=== PATIENT | male | born 1980 | race American Indian/Alaskan Native ===

== ENCOUNTER 2021-10-26 15:30 | Inpatient (IN) | payer SELFPAY ==
[2021-10-26] MEDS ORDERED: NITROGLYCERIN 2% OINT 1 GM TP ONE (16:07)
[2021-10-26] MEDS ORDERED: MORPHINE 4 MG/1 ML INJ ONE (16:08)
[2021-10-26] MEDS ORDERED: HEPARIN 10,000 UNITS/10 ML VIAL IV PRN (16:13)
[2021-10-26 16:28] LABS: Basophils % (Auto) 0.2 % (0.0-1.8); Eosinophils % (Auto) 0.2 % (0.0-4.3); Hematocrit 43.7 % (35.5-45.6); Hemoglobin 14.6 gm/dl (11.8-15.2); INR 0.91 (0.87-1.13); Lymphocytes # (Auto) 2.1 K/mm3 (1.2-5.4); Lymphocytes % (Auto) 22.9 % (13.4-35.0); Mean Corpuscular HGB Conc 34 % (32-34); Mean Corpuscular Volume 97 fl (84-94); Monocytes # (Auto) 0.6 K/mm3 (0.0-0.8); Monocytes % (Auto) 6.1 % (0.0-7.3); Platelet Count 128 K/mm3 (140-440); Red Cell Distribution Width 14.1 % (13.2-15.2)
[2021-10-26 16:54] LABS: Alanine Aminotransferase 14 units/L (7-56); BUN/Creatinine Ratio 9; Blood Urea Nitrogen 11 mg/dL (9-20); C-Reactive Protein 0.5 mg/dL (0.00-1.30); Calcium 10.1 mg/dL (8.4-10.2); Hemolysis Index 16
--- NOTE | 2021-10-26 16:57 | Consultation ---
History of Present Illness Consult date: 10/26/21 Requesting physician: FRANCESCA INIGUEZ Consult reason: chest pain, other (ST depression EKG) History of present illness: Patient is a 40-year-old male who reports a past medical history of hypertension came to the ED today with complaint of chest pain which began this morning. Patient reports that while reading this afternoon he suddenly developed crushing chest pain which was centrally located in his chest. Patient endorses nausea vomiting and diaphoresis associated with the chest pain. Patient states he just does not feel well. Of note patient reports that he has not taken his blood pressure medications in about 3 weeks. At the time of exam patient is actively vomiting and appears in pain. Patient's EKG had ST depression. Patient is previously unknown to our practice. Cardiology is consulted for chest pain and abnormal EKG Past History Past Medical History: hypertension Past Surgical History: No surgical history Social history: no significant social history Family history: no significant family history Medications and Allergies Allergies Allergy/AdvReac Type Severity Reaction Status Date / Time No Known Allergies Allergy Verified 10/26/21 16:07 Active Meds: Active Medications Heparin Sodium (Porcine) (Heparin 10,000 Units/10 Ml Vial) 4,400 unit 40 unit/kg (4400 unit) IV Q6H PRN PRN Reason: Anti-Xa Assay less than 0.1 un Heparin Sodium (Porcine) (Heparin 10,000 Units/10 Ml Vial) 4,000 unit IV BOLUS ONE Stop: 10/26/21 17:01 Sodium Chloride (Nacl 0.9% 1000 Ml) 1,000 mls @ 999 mls/hr IV BOLUS ONE Stop: 10/26/21 18:00 Nitroglycerin/Dextrose (Tridil Drip 50mg/250ml) 50 mg in 250 mls @ 3 mls/hr IV TITR ELOY; Protocol Sodium Chloride (Nacl 0.9% 500 Ml) 500 mls @ 50 mls/hr IV DIRECT ELOY Stop: 10/27/21 02:59 Review of Systems Constitutional: malaise, no weight loss, no weight gain Ears, nose, mouth and throat: no sinus pressure, no sinus pain Cardiovascular: chest pain, shortness of breath Respiratory: shortness of breath Gastrointestinal: nausea, vomiting Musculoskeletal: no neck stiffness, no neck pain, no shooting arm pain Integumentary: no rash, no pruritis, no redness Neurological: no transient paralysis, no paralysis Psychiatric: no anxiety, no memory loss Endocrine: no cold intolerance, no heat intolerance Hematologic/Lymphatic: no easy bruising, no easy bleeding Physical Examination Vital Signs Pulse Resp BP Pulse Ox 85 24 162/102 100 10/26/21 16:14 10/26/21 16:14 10/26/21 16:14 10/26/21 16:14 General appearance: mild distress HEENT: Positive: Normocephaly Neck: Positive: trachea midline Cardiac: Positive: Regular Rhythm, Tachycardia Lungs: Positive: Normal Breath Sounds Neuro: Positive: Grossly Intact Abdomen: Positive: Soft Skin: Negative: Rash, Suspicious Lesions, Ulceration Extremities: Present: upper extr. pulses. Absent: edema Results 10/26/21 16:03 Coagulation 10/26/21 Range/Units 16:03 PT 13.2 (12.2-14.9) Sec. INR 0.91 (0.87-1.13) CBC 10/26/21 Range/Units 16:03 WBC 9.1 (4.5-11.0) K/mm3 RBC 4.50 (3.65-5.03) M/mm3 Hgb 14.6 (11.8-15.2) gm/dl Hct 43.7 (35.5-45.6) % Plt Count 128 L (140-440) K/mm3 Lymph # (Auto) 2.1 (1.2-5.4) K/mm3 [place] # (Auto) 0.6 (0.0-0.8) K/mm3 Eos # (Auto) 0.0 (0.0-0.4) K/mm3 Baso # (Auto) 0.0 (0.0-0.1) K/mm3 - Imaging and Cardiology Echo: pending Cardiac cath: pending EKG interpretations - Telemetry EKG Rhythm: Sinus Rhythm - EKG Sinus rhythms and dysrhythmias: sinus rhythm Repolarization changes or abnormalities: ST or T wave suggestive of ischemia Assessment and Plan Patient is a 40-year-old male who reports a past medical history of hypertension came to the ED today with complaint of chest pain which began this morning ACS Chest pain Nausea/vomiting Hypertension Plan: EKG shows sinus rhythm with ST depression. Cardiac enzymes pending Initiate nitro drip Treat patient for ACS Patient for cardiac cath Echo pending Further recommendations following lab work and possible cardiac Patient seen in conjunction with Dr. Ayala who agrees this plan of care - Patient Problems (1) ACS (acute coronary syndrome) Status: Acute (2) HTN (hypertension) Status: Acute
[2021-10-26] MEDS ORDERED: HEPARIN/NS 5000 UNIT/500ML 1,000 ML IR ONE (16:58)
[2021-10-26] MEDS ORDERED: SODIUM CHLORIDE 0.9% 500 ML 500 ML IV SCH (17:00)
[2021-10-26] MEDS ORDERED: HEPARIN 10,000 UNITS/10 ML VIAL IV ONE (17:00)
[2021-10-26] MEDS ORDERED: SODIUM CHLORIDE 0.9% 1000 ML 1,000 ML IV ONE (17:00)
[2021-10-26] MEDS ORDERED: HEPARIN 1,000 UNIT/1 ML VIAL IV ONE (17:00)
--- NOTE | 2021-10-26 17:00 | Emergency Department Report ---
ED Chest Pain HPI - General Chief Complaint: Chest Pain Stated Complaint: CHEST PAIN PUI?: No Time Seen by Provider: 10/26/21 15:53 Source: patient, EMS Mode of arrival: Stretcher Limitations: No Limitations - History of Present Illness Initial Comments: PT C/O CP WITH N/V. 01/16. DIAPHORETIC. UNABLE TO SIT STILL. pain started 1 hour agowhile lying down , no fever, . Nausea and vomiting noted and sweating -: Sudden, hour(s) (1) Onset: during rest Pain Location: substernal Pain Radiation: back, neck, jaw/teeth Severity: severe Severity scale (0 -10): 10 Quality: aching, pressure Improves With: nothing Worsens With: nothing re: nausea, vomting, diaphoresis, dyspnea, sense of impending doom Treatments Prior to Arrival: aspirin - Related Data Allergies Allergy/AdvReac Type Severity Reaction Status Date / Time No Known Allergies Allergy Verified 10/26/21 16:07 Heart Score - HEART Score History: Highly suspicious EKG: Significant ST-depression Age: < 45 Risk factors: No known risk factors Troponin: < normal limit HEART Score: 4 - EKG Read Time Time EKG Completed: 15:31 EKG Read Time: 15:31 - Critical Actions Critical Actions: 4-6 pts:12-16.6% risk of adverse cardiac event. Should be admitted ED Review of Systems ROS: Stated complaint: CHEST PAIN Other details as noted in HPI ED Past Medical Hx - Past Medical History Previous Medical History?: No Hx Hypertension: No ED Physical Exam - General Limitations: No Limitations General appearance: anxious, in distress, other (diaphoretic ) - Head Head exam: Present: atraumatic, normocephalic - Eye Eye exam: Present: normal appearance - ENT ENT exam: Present: mucous membranes moist - Neck Neck exam: Present: normal inspection - Respiratory Respiratory exam: Present: normal lung sounds bilaterally. Absent: respiratory distress - Cardiovascular Cardiovascular Exam: Present: regular rate, normal rhythm. Absent: systolic murmur, diastolic murmur, rubs, gallop - GI/Abdominal GI/Abdominal exam: Present: soft, normal bowel sounds - Rectal Rectal exam: Present: deferred - Extremities Exam Extremities exam: Present: normal inspection - Back Exam Back exam: Present: normal inspection - Neurological Exam Neurological exam: Present: alert, oriented X3 - Psychiatric Psychiatric exam: Present: anxious - Skin Skin exam: Present: warm, intact, normal color, diaphoretic. Absent: rash ED Course Vital Signs 10/26/21 10/26/21 10/26/21 15:51 15:55 16:01 Pulse Rate 91 H 73 Respiratory 20 22 Rate Blood Pressure 205/87 211/78 Blood Pressure [Left] O2 Sat by Pulse 100 100 100 Oximetry 10/26/21 10/26/21 10/26/21 16:05 16:11 16:14 Pulse Rate 96 H 85 Respiratory 14 17 24 Rate Blood Pressure 185/93 185/93 Blood Pressure 162/102 [Left] O2 Sat by Pulse 100 100 100 Oximetry 10/26/21 10/26/21 10/26/21 16:15 16:21 16:25 Pulse Rate 71 70 Respiratory 14 13 Rate Blood Pressure 159/117 147/99 147/99 Blood Pressure [Left] O2 Sat by Pulse 99 98 99 Oximetry 10/26/21 10/26/21 10/26/21 16:31 16:35 16:41 Pulse Rate 74 94 H 91 H Respiratory 15 14 12 Rate Blood Pressure 147/99 205/173 205/173 Blood Pressure [Left] O2 Sat by Pulse 100 100 100 Oximetry 10/26/21 10/26/21 10/26/21 16:45 16:51 16:55 Pulse Rate 75 78 Respiratory 20 16 Rate Blood Pressure 205/173 162/77 162/77 Blood Pressure [Left] O2 Sat by Pulse 100 98 100 Oximetry ED Medical Decision Making - Lab Data Result diagrams: 10/26/21 16:03 10/26/21 16:03 - EKG Data -: EKG Interpreted by [place] EKG shows normal: sinus rhythm Rate: normal - EKG Data Interpretation: LVH - Radiology Data Radiology results: report reviewed, image reviewed - Medical Decision Making spoke with dr Garvin and roderick, not stemi but started hep drip and nitro , Dr barrera came to bed side will take him to 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 ED Disposition Clinical Impression: ACS (acute coronary syndrome) Disposition: ADMITTED INPATIENT Is pt being admited?: Yes Does the pt Need Aspirin: Yes Condition: Critical
--- NOTE | 2021-10-26 17:05 | XRay Report ---
CHEST 1 VIEW 10/26/2021 4:28 PM INDICATION / CLINICAL INFORMATION: Chest Pain. COMPARISON: None available. FINDINGS: SUPPORT DEVICES: None. HEART / MEDIASTINUM: No significant abnormality. LUNGS / PLEURA: No significant pulmonary or pleural abnormality. No pneumothorax. ADDITIONAL FINDINGS: No significant additional findings. IMPRESSION: No acute abnormality. Signer Name: Dougie Romero MD Signed: 10/26/2021 5:00 PM Workstation Name: [email or web address]
[2021-10-26] MEDS ORDERED: SODIUM CHLORIDE 0.9% 1000 ML 1,000 ML ONE (17:15)
[2021-10-26] MEDS: HEPARIN 10,000 UNITS/10 ML VIAL ONE ×2 (17:18→17:30)
[2021-10-26] MEDS: MIDAZOLAM 2 MG/2 ML INJ ONE ×2 (17:18→17:28)
[2021-10-26] MEDS: fentaNYL 100 MCG/2 ML INJ ONE ×2 (17:18→17:28)
[2021-10-26] MEDS: VERAPAMIL 5 MG/2 ML INJ ONE ×2 (17:19→17:30)
[2021-10-26] MEDS: LIDOCAINE (2%) 20 MG/1 ML VIAL 50 ML MDV INFILTRATI ONE ×2 (17:19→17:27)
[2021-10-26] MEDS: NITROGLYCERIN SYRINGE 3 ML ONE ×2 (17:19→17:30)
[2021-10-26] MEDS ORDERED: NITROGLYCERIN DRIP 50 MG/250 ML BOTTLE ONE (17:19)
[2021-10-26] MEDS: NITROGLYCERIN DRIP 50 MG/250 ML BOTTLE IV SCH ×2 (17:23→18:25)
[2021-10-26] MEDS ORDERED: hydrALAZINE 20 MG/1 ML INJ ONE (17:27)
[2021-10-26] MEDS ORDERED: MORPHINE 4 MG/1 ML INJ IV ONE ×2 (17:28→17:30)
[2021-10-26] MEDS ORDERED: LORazepam 2 MG/ML VIAL IV ONE (17:29)
[2021-10-26] MEDS ORDERED: MORPHINE 4 MG/1 ML INJ IV PRN (17:38)
[2021-10-26] MEDS ORDERED: ACETAMINOPHEN 325 MG TAB PO PRN (17:38)
[2021-10-26] MEDS ORDERED: oxyCODONE /ACETAMINOPHEN 5-325MG TAB PO PRN (17:38)
[2021-10-26] MEDS ORDERED: ALBUTEROL 2.5 MG/3 ML NEBU IH PRN (17:38)
[2021-10-26] MEDS ORDERED: HEPARIN 10,000 UNIT/1 ML VIAL IV ONE (17:40)
--- NOTE | 2021-10-26 17:47 | History and Physical Report ---
History of Present Illness Chief complaint: I have pain in my chest History of present illness: 40 YO Male with HTN, Obesity presents to ED for evaluation. Patient reports "I have pain in my chest". Patient states that he experienced a sudden onset of pain in his chest this afternoon. Patient states that the pain occurred suddenly, substernal in location, crushing in nature, worsened with exertion, relieved with rest, associated with nausea, associated with multiple episodes of vomiting, associated with diaphoresis. Patient states that pain is 10/10, constant, radiating to the back and neck. EMS was notified and upon arrival the patient was found to be in distress and subsequent transported to [facility] for fur ther care and evaluation of the aforementioned symptoms. The patient was seen and evaluated in the emergency department. All lab and imaging studies reviewed. Patient found to have a blood pressure of 205/87 mmHg which is consistent with hypertensive emergency, angina at rest, as well as clinical symptoms consistent with Diastolic CHF decompensation. Cardiology team consulted. Patient taken urgently to [facility] for surgical intervention. Patient admitted to IMCU and initiated on nitro drip for blood pressure control due to increased risk of worsening symptoms and medical stabilization. Patient denies fever, chills, productive cough, skin rash, recent contact, prolonged travel/immobility, unilateral leg pain, calf pain, individual/family history of DVT/PE/bleeding/blood clotting disorders, known exposure to COVID-19. No prior admission for review. No medication listed at time of admission for reconciliation. Advanced care planning conducted in ED. Past History Past Medical History: hypertension, other (See HPI) Past Surgical History: No surgical history Social history: no significant social history Family history: no significant family history Medications and Allergies Allergies Allergy/AdvReac Type Severity Reaction Status Date / Time No Known Allergies Allergy Verified 10/26/21 16:07 Active Meds: Active Medications Acetaminophen (Acetaminophen 325 Mg Tab) 650 mg PO Q6H PRN PRN Reason: Pain MILD(1-3)/Fever >100.5/ELISE Albuterol (Albuterol 2.5 Mg/3 Ml Nebu) 2.5 mg IH Q3HRT PRN PRN Reason: Shortness Of Breath Heparin Sodium (Porcine) (Heparin 10,000 Units/10 Ml Vial) 4,400 unit 40 unit/kg (4400 unit) IV Q6H PRN PRN Reason: Anti-Xa Assay less than 0.1 un Sodium Chloride (Nacl 0.9% 1000 Ml) 1,000 mls @ 999 mls/hr IV BOLUS ONE Stop: 10/26/21 18:00 Last Admin: 10/26/21 16:31 Dose: 999 mls/hr Nitroglycerin/Dextrose (Tridil Drip 50mg/250ml) 50 mg in 250 mls @ 3 mls/hr IV TITR ELOY; Protocol Last Admin: 10/26/21 17:23 Dose: 0 mls Sodium Chloride (Nacl 0.9% 500 Ml) 500 mls @ 50 mls/hr IV DIRECT ELOY Stop: 10/27/21 02:59 Morphine Sulfate (Morphine 4 Mg/1 Ml Inj) 2 mg IV Q8H PRN PRN Reason: Pain , Severe (7-10) Oxycodone/Acetaminophen (Oxycodone /Acetaminophen 5-325mg Tab) 1 tab PO Q6H PRN PRN Reason: Pain, Moderate (4-6) Sodium Chloride (Sodium Chloride 0.9% 10 Ml Flush Syringe) 10 ml IV BID ELOY Sodium Chloride (Sodium Chloride 0.9% 10 Ml Flush Syringe) 10 ml IV PRN PRN PRN Reason: LINE FLUSH Review of Systems Constitutional: no weight loss, no weight gain, no fever, no chills Ears, nose, mouth and throat: no ear pain, no ear discharge, no decreased hearing, no nasal congestion Cardiovascular: chest pain, shortness of breath, dyspnea on exertion, decreased exercise tolerance Respiratory: no cough, no hemoptysis Gastrointestinal: nausea, vomiting, no abdominal pain, no diarrhea, no constipa tion Genitourinary Male: no hematuria, no flank pain, no discharge, no urinary frequency, no urinary hesitancy Rectal: no pain, no incontinence, no bleeding Musculoskeletal: no neck stiffness, no shooting arm pain, no arm num bness/tingling, no leg numbness/tingling Integumentary: no rash, no pruritis, no sores, no jaundice Neurological: no head injury, no paralysis, no parathesias, no seizures, no syncope Psychiatric: no anxiety, no sleep disturbances, no change in libido Endocrine: no cold intolerance, no heat intolerance, no polydipsia, no nocturia, no excessive sweating Hematologic/Lymphatic: no easy bruising, no easy bleeding, no lymphadenopathy Allergic/Immunologic: no urticaria, no wheezing, no anaphylaxis, no angioedema Exam - Constitutional Vitals: Temp Pulse Resp BP Pulse Ox 78 16 162/77 100 10/26/21 16:51 10/26/21 16:51 10/26/21 16:55 10/26/21 16:55 General appearance: Present: mild distress, obese - EENT Eyes: Present: PERRL ENT: hearing intact, clear oral mucosa - Neck Neck: Present: supple, normal ROM - Respiratory Respiratory effort: normal Respiratory: bilateral: CTA - Cardiovascular Heart Sounds: Present: S1 & S2. Absent: rub, click - Extremities Extremities: pulses symmetrical, No edema Peripheral Pulses: within normal limits - Abdominal General gastrointestinal: Present: soft, non-tender, non-distended, normal bowel sounds Male genitourinary: Present: normal - Integumentary Integumentary: Present: clear, warm, dry - Musculoskeletal Musculoskeletal: gait normal, strength equal bilaterally - Psychiatric Psychiatric: appropriate mood/affect, intact judgment & insight - Neurologic Neurologic: CNII-XII intact, moves all extremities HEART Score - HEART Score EKG: Significant ST-depression Age: < 45 Risk factors: No known risk factors Troponin: Troponin T < 0.010 ng/mL (0.00-0.029) 10/26/21 16:03 Troponin: < normal limit - Critical Actions Critical Actions: 4-6 pts:12-16.6% risk of adverse cardiac event. Should be admitted Results - Labs CBC & Chem 7: 10/26/21 16:03 10/26/21 16:03 Labs: Abnormal lab results 10/26/21 10/26/21 10/26/21 Range/Units 16:03 16:03 16:03 MCV 97 H (84-94) fl MCH 33 H (28-32) pg Plt Count 128 L (140-440) K/mm3 Seg Neutrophils % 70.6 H (40.0-70.0) % D-Dimer 4049.77 H (0-234) ng/mlDDU Potassium 3.4 L (3.6-5.0) mmol/L Carbon Dioxide 20 L (22-30) mmol/L Total Creatine Kinase (55-170) units/L 10/26/21 Range/Units 16:03 MCV (84-94) fl MCH (28-32) pg Plt Count (140-440) K/mm3 Seg Neutrophils % (40.0-70.0) % D-Dimer (0-234) ng/mlDDU Potassium (3.6-5.0) mmol/L Carbon Dioxide (22-30) mmol/L Total Creatine Kinase 183 H (55-170) units/L Assessment and Plan - Patient Problems (1) ACS (acute coronary syndrome) Status: Acute Plan to address problem: ACS protocol: Serial card enzymes, EKG, telemetry monitoring, cardiology team consulted in ED. Patient taken urgently to [facility] for surgical intervention. Patient initiated on therapeutic anticoagulation. (2) Hypertensive emergency Status: Acute Plan to address problem: Patient admitted to ICU MCU, nitro drip, blood pressure control, continue medical management. (3) Diastolic CHF Status: Acute Qualifiers: Heart failure chronicity: acute Qualified Code(s): I50.31 - Acute diastolic (congestive) heart failure Plan to address problem: Strict I's/O, monitor Q shift, daily weight, afterload reduction, blood pressure control, echocardiogram ordered and pending at time of admission. (4) Obesity Status: Acute Qualifiers: Body mass index: BMI 30.0-30.9 Plan to address problem: Balanced diet, increase physical activity discharge. (5) DVT prophylaxis Status: Acute Plan to address problem: SCD to bilateral lower extremities while in bed, continue therapeutic anticoagulation. (6) Advance care planning Status: Acute Plan to address problem: Disease education conducted, care plan discussed, diagnoses discussed, prognosis discussed, patient full code. Patient knowledges understanding and agreement with care plan, +30 minutes. (7) Preventative health care Status: Acute Plan to address problem: Patient counseled regarding weight loss, and risk factor reduction, increase physical activity discharge, medication compliance, outpatient follow-up with primary care physician for all age and risk factor appropriate screening test. +30 minutes.
[2021-10-26] MEDS ORDERED: ASPIRIN 81 MG TAB CHEW PO SCH (17:48)
[2021-10-26] MEDS: METOPROLOL TARTRATE 50 MG TAB PO SCH (21:02)
[2021-10-26] MEDS: VALSARTAN 160MG TAB PO SCH (21:02)
[2021-10-26 21:32] LABS: Mucus,Urine FEW /HPF
[2021-10-26 21:34] LABS: Color,Urine Colorless (Yellow)
[2021-10-26 21:35] LABS: Bilirubin,Urine Negative (Negative); Blood,Urine Negative (Negative)
[2021-10-26 21:39] LABS: Amphetamine Screen,Urine Negative; Cocaine Screen,Urine Negative; Methadone Screen,Urine Negative
[2021-10-26 21:51] LABS: Benzodiazepines Screen,Urine Positive; Cannabinoid Screen,Urine Positive; Opiate Screen,Urine Positive
--- NOTE | 2021-10-26 23:35 | Cardiac Catherization Report ---
DATE OF SERVICE: 10/26/2021 LEFT HEART CATHETERIZATION CLINICAL INFORMATION: A 40-year-old male who has not been on blood pressure medicine for 3-4 weeks, has hypertensive urgency with recurrent non-controllable chest pain despite medical management and with EKG changes shows ST-depression in inferolateral leads. The patient was started on heparin and nitro. Stabbing pain, so brought emergently for acute coronary syndrome. The patient was started on moderate sedation, started at 1730, finished at 1745, 15 minutes of moderate sedation. DESCRIPTION OF PROCEDURE: Procedure was done via the right radial artery, sterile technique and local anesthesia. A 6-[place] radial sheath inserted. Left system engaged with JL3.5 catheter. Left main is large and patent, and bifurcates to large LAD, that is patent. Diagonal 1 is a medium caliber and was patent. Ramus medium caliber, patent. Circumflex, large caliber was patent. OM1, medium caliber, patent. RCA engaged with JR4 is a large, dominant vessel with moderate tortuosity, is patent. PDA, PLV are large caliber vessel with multiple branches are patent and normal. LV gram done in [place] and [place]IL[place] shows normal LV function, LVEDP of 25 mmHg, LV is 167, aortic is 167/87. No gradient across the aortic valve on pullback. The 5-[place] catheters all taken over guidewire. A 6-[place] radial sheath was DC. Radial band applied. No hematoma, no bleeding. SUMMARY: Normal coronaries, large epicardial vessel with moderate tortuosity. Right dominant system with normal LV function with elevated left end-diastolic pressure. The patient was chest pain free, despite from hypertensive urgency causing the patient's chest pain. Treat medically. The patient admitted to ICU. TID: [id number] RECEIPT: [id number] LUCY/SYLVIE/MG
[2021-10-27] MEDS ORDERED: ZOLPIDEM 5 MG TAB PO ONE (00:47)
[2021-10-27 05:07] LABS: Basophils % (Auto) 0.1 % (0.0-1.8); Hematocrit 36.4 % (35.5-45.6); Hemoglobin 12.6 gm/dl (11.8-15.2); Lymphocytes # (Auto) 1.5 K/mm3 (1.2-5.4); Lymphocytes % (Auto) 14.3 % (13.4-35.0); Mean Corpuscular HGB Conc 35 % (32-34); Mean Corpuscular Volume 95 fl (84-94); Monocytes # (Auto) 0.6 K/mm3 (0.0-0.8); Monocytes % (Auto) 5.5 % (0.0-7.3); Platelet Count 111 K/mm3 (140-440); Red Blood Count 3.82 M/mm3 (3.65-5.03); Red Cell Distribution Width 14.4 % (13.2-15.2)
[2021-10-27 05:24] LABS: Alanine Aminotransferase 11 units/L (7-56); BUN/Creatinine Ratio 11; Blood Urea Nitrogen 13 mg/dL (9-20); Calcium 9.3 mg/dL (8.4-10.2); Hemolysis Index 4
[2021-10-27] MEDS: VALSARTAN 160MG TAB PO SCH (09:29)
[2021-10-27] MEDS: METOPROLOL TARTRATE 50 MG TAB PO SCH (09:30)
[2021-10-27] MEDS ORDERED: FAMOTIDINE 20 MG TAB PO SCH (10:00)
--- NOTE | 2021-10-27 10:09 | Consultation ---
History of Present Illness Consult date: 10/27/21 Requesting physician: JEREMIAS RODRÍGUEZ Reason for consult: chest pain History of present illness: PULMONARY/CCM CONSULT NOTE (Full dictation # [id number]) Please see dictated notes for full details Past History Past Medical History: hypertension, other (See HPI) Past Surgical History: No surgical history Social history: no significant social history Family history: no significant family history Medications and Allergies Allergies Allergy/AdvReac Type Severity Reaction Status Date / Time Penicillins Allergy Unknown Verified 10/27/21 06:38 Home Medications Medication Instructions Recorded Confirmed Last Taken Type No Known Home Medications [No 10/27/21 10/27/21 Unknown History Reported Home Medications] Active Meds: Active Medications Acetaminophen (Acetaminophen 325 Mg Tab) 650 mg PO Q6H PRN PRN Reason: Pain MILD(1-3)/Fever >100.5/ELISE Last Admin: 10/27/21 09:29 Dose: 650 mg Albuterol (Albuterol 2.5 Mg/3 Ml Nebu) 2.5 mg IH Q3HRT PRN PRN Reason: Shortness Of Breath Famotidine (Famotidine 20 Mg Tab) 20 mg PO QDAY [facility] Last Admin: 10/27/21 09:30 Dose: 20 mg Heparin Sodium (Porcine) (Heparin 10,000 Units/10 Ml Vial) 4,400 unit 40 unit/ kg (4400 unit) IV Q6H PRN PRN Reason: Anti-Xa Assay less than 0.1 un Nitroglycerin/Dextrose (Tridil Drip 50mg/250ml) 50 mg in 250 mls @ 3 mls/hr IV TITR [facility]; Protocol Last Titration: 10/27/21 09:32 Dose: 0 mcg/min, 0 mls/hr Metoprolol Tartrate (Metoprolol Tartrate 50 Mg Tab) 50 mg PO BID [facility] Last Admin: 10/27/21 09:30 Dose: 50 mg Morphine Sulfate (Morphine 4 Mg/1 Ml Inj) 2 mg IV Q8H PRN PRN Reason: Pain , Severe (7-10) Oxycodone/Acetaminophen (Oxycodone /Acetaminophen 5-325mg Tab) 1 tab PO Q6H PRN PRN Reason: Pain, Moderate (4-6) Sodium Chloride (Sodium Chloride 0.9% 10 Ml Flush Syringe) 10 ml IV BID [facility] Last Admin: 10/27/21 09:30 Dose: 10 ml Sodium Chloride (Sodium Chloride 0.9% 10 Ml Flush Syringe) 10 ml IV PRN PRN PRN Reason: LINE FLUSH Valsartan (Valsartan 160mg Tab) 160 mg PO BID ELOY Last Admin: 10/27/21 09:29 Dose: 160 mg Physical Examination Vital signs: Vital Signs Pulse Resp Pulse Ox 91 H 20 100 10/26/21 15:51 10/26/21 15:51 10/26/21 15:51 Results - Laboratory Findings CBC and BMP: 10/27/21 04:15 10/27/21 04:15 PT/INR, D-dimer PT 13.2 Sec. (12.2-14.9) 10/26/21 16:03 INR 0.91 (0.87-1.13) 10/26/21 16:03 D-Dimer 4049.77 ng/mlDDU (0-234) H 10/26/21 16:03 Abnormal lab findings: Abnormal Labs 10/26/21 10/26/21 10/26/21 16:03 16:03 16:03 MCV 97 H MCH 33 H MCHC Plt Count 128 L Seg Neutrophils % 70.6 H Seg Neutrophils # D-Dimer 4049.77 H Potassium 3.4 L Carbon Dioxide 20 L Glucose Total Creatine Kinase Urine pH 10/26/21 10/26/21 10/27/21 16:03 20:42 04:15 MCV MCH MCHC Plt Count Seg Neutrophils % Seg Neutrophils # D-Dimer Potassium Carbon Dioxide Glucose 112 H Total Creatine Kinase 183 H Urine pH 8.0 H 10/27/21 04:15 MCV 95 H MCH 33 H MCHC 35 H Plt Count 111 L Seg Neutrophils % 80.1 H Seg Neutrophils # 8.3 H D-Dimer Potassium Carbon Dioxide Glucose Total Creatine Kinase Urine pH
--- NOTE | 2021-10-27 10:39 | Progress Note ---
Assessment and Plan Patient is a 40-year-old male who reports a past medical history of hypertension came to the ED today with complaint of chest pain which began this morning Elevated D-dimer Hypertension Noncompliance Acute diastolic heart failure Aortic Dissection Echo 10/26/2021-EF 60 to 65%. Mild concentric LVH. Aortic valve is normal in structure mild aortic regurgitation. Mild to moderate tricuspid regurgitation. IVC is dilated. IVC collapses less than 50% inspiration. Ascending aorta is dilated. There is a flap and ascending aorta consistent with aortic dissection. Linear echoes suggest abdominal aortic dissection. There is a dissection flap noted in the descending aorta with bidirectional blood flow. Trace anterior pericardial effusion Cardiac cath 10/26/2021-normal coronaries large epicardial vessel with moderate tortuosity. Right dominant system with normal LV function with elevated left end-diastolic pressure. Plan: EKG shows sinus rhythm with ST depression. Cardiac negative x 3 and patient had normal cath. AMI ruled out Patient found to be in hypertensive emergency. On echo patient found to have aortic dissection. Patient will be transferred for [facility] for further management. Accepting physician is Dr. Talavera BP improved today patient currently on metoprolol 50 mg p.o. twice daily, losartan 160 mg p.o. twice daily Discussed with patient importance of medication compliance. Patient verbalized understanding and acknowledgment Patient seen in conjunction with Dr. Harley who agrees this plan of care - Patient Problems (1) ACS (acute coronary syndrome) Current Visit: No Status: Acute (2) HTN (hypertension) Current Visit: No Status: Acute (3) Aortic dissection Current Visit: Yes Status: Acute (4) Diastolic CHF Current Visit: No Status: Acute Qualifiers: Heart failure chronicity: acute Qualified Code(s): I50.31 - Acute diastolic (congestive) heart failure (5) Hypertensive emergency Current Visit: No Status: Acute (6) Obesity Current Visit: No Status: Acute Qualifiers: Body mass index: BMI 30.0-30.9 (7) Preventative health care Current Visit: No Status: Acute Subjective Date of service: 10/27/21 Principal diagnosis: Hypertensive crisis Interval history: Patient resting in bed in no acute distress. Patient reports feeling significantly better this a.m. Patient sinus 60s- 70s on monitor with no events Objective Vital Signs Temp Pulse Resp BP BP Pulse Ox 10/27/21 09:30 66 143/76 07/21/22 09:29 63 143/76 07/21/22 09:15 143/76 97 07/21/22 09:00 66 19 128/77 100 07/21/22 08:51 143/67 68 L 0721/22 08:30 143/67 95 07/21/22 08:15 136/62 100 07/21/22 08:11 97 07/21/22 08:00 62 19 137/71 92 07/21/22 07:45 65 17 115/70 96 07/21/22 07:31 72 15 115/70 98 07/21/22 07:15 63 15 126/69 93 07/21/22 07:08 100.2 F H 07/22 07:00 63 20 127/73 98 07/21/22 06:45 63 17 110/68 92 07/21/22 06:30 66 16 116/68 92 07/21/22 06:15 62 15 117/63 93 07/21/22 06:01 64 19 117/67 92 07/21/22 05:45 64 16 140/65 07/21/22 05:30 73 16 150/75 91 07/21/22 05:15 73 16 138/69 92 07/21/22 05:00 78 20 139/67 93 07/21/22 04:45 71 16 141/68 96 07/21/22 04:31 64 17 142/67 95 07/21/22 04:15 70 20 157/75 94 07/21/22 04:00 98 F 67 19 147/67 94 07/21/22 03:45 69 15 152/71 93 07/21/22 03:36 66 17 97 07/21/22 03:30 82 13 147/73 95 07/21/22 03:15 71 15 154/67 95 07/21/22 03:00 73 16 155/74 97 07/21/22 02:45 75 17 155/74 92 07/21/22 02:30 74 15 154/71 95 07/21/22 02:15 71 17 160/73 95 07/21/22 02:00 66 16 155/71 93 07/21/22 01:45 68 16 163/70 94 07/21/22 01:30 71 15 160/74 94 07/21/22 01:15 69 17 173/80 97 07/21/22 01:00 79 16 173/80 96 10/27/22 00:45 93 H 22 164/84 99 22 00:30 73 13 164/84 99 22 00:15 88 26 H 181/135 99 22 00:09 71 12 181/135 97 10/27/21 00:01 64 13 173/127 98 20/22 23:45 68 16 138/63 97 22 23:36 13 98 22 23:33 70 0722 23:32 98.2 F 10/26/21 23:31 85 14 138/63 95 22 23:15 70 9 L 128/68 99 10/26/21 23:00 67 14 123/66 98 22 22:45 69 14 125/65 95 22 22:30 66 15 134/67 98 10/26/21 22:15 67 15 137/69 98 10/26/21 22:00 68 15 136/75 96 10/26/21 21:45 72 11 L 163/82 100 22 21:30 163/82 100 22 21:15 73 12 187/82 99 10/26/21 21:02 187/82 22 21:00 70 14 187/82 98 22 20:45 71 13 156/72 97 22 20:31 71 10 L 156/72 100 22 20:15 70 14 155/72 99 10/26/21 20:00 97.7 F 70 14 155/72 95 2022 19:45 68 8 L 160/82 97 20/22 19:32 12 98 20/22 19:30 70 17 154/83 98 20/22 19:15 69 17 171/87 97 2022 19:00 71 8 L 171/87 98 2022 18:45 71 15 168/83 98 20/22 18:30 68 12 160/74 100 2022 18:28 66 11 L 98 20/22 16:55 162/77 100 072022 16:51 78 16 162/77 98 20/22 16:45 75 20 205/173 100 07/20/22 16:41 91 H 12 205/173 10/26/21 16:35 94 H 14 205/173 10/26/21 16:31 74 15 147/99 100 10/26/21 16:25 70 13 147/99 99 10/26/21 16:21 71 14 147/99 98 10/26/21 16:15 159/117 99 10/26/21 16:14 85 24 162/102 100 10/26/21 16:11 17 185/93 10/26/21 16:05 96 H 14 185/93 10/26/21 16:01 211/78 10/26/21 15:55 73 22 205/87 10/26/21 15:51 91 H 20 100 - Physical Examination General: No Apparent Distress HEENT: Positive: Normocephaly Neck: Positive: trachea midline Cardiac: Positive: Reg Rate and Rhythm Lungs: Positive: Normal Breath Sounds Neuro: Positive: Grossly Intact Abdomen: Positive: Soft Skin: Negative: Rash, Suspicious Lesions, Ulceration Extremities: Present: upper extr. pulses. Absent: edema - Labs and Meds Cardiac Enzymes 10/26/21 10/27/21 Range/Units 16:03 04:15 AST 22 15 (5-40) units/L Coagulation 10/26/21 Range/Units 16:03 PT 13.2 (12.2-14.9) Sec. INR 0.91 (0.87-1.13) CBC 10/26/21 10/27/21 Range/Units 16:03 04:15 WBC 9.1 10.4 (4.5-11.0) K/mm3 RBC 4.50 3.82 (3.65-5.03) M/mm3 Hgb 14.6 12.6 (11.8-15.2) gm/dl Hct 43.7 36.4 D (35.5-45.6) % Plt Count 128 L 111 L (140-440) K/mm3 Lymph # (Auto) 2.1 1.5 (1.2-5.4) K/mm3 [place] # (Auto) 0.6 0.6 (0.0-0.8) K/mm3 Eos # (Auto) 0.0 0.0 (0.0-0.4) K/mm3 Baso # (Auto) 0.0 0.0 (0.0-0.1) K/mm3 Comprehensive Metabolic Panel 10/26/21 10/27/21 Range/Units 16:03 04:15 Sodium 141 140 (137-145) mmol/L Potassium 3.4 L 3.9 (3.6-5.0) mmol/L Chloride 102.4 106.0 (98-107) mmol/L Carbon Dioxide 20 L 23 (22-30) mmol/L BUN 11 13 (9-20) mg/dL Creatinine 1.2 1.2 (0.8-1.3) mg/dL Glucose 99 112 H (75-100) mg/dL Calcium 10.1 9.3 (8.4-10.2) mg/dL AST 22 15 (5-40) units/L ALT 14 11 (7-56) units/L Alkaline Phosphatase 68 50 (35-129) units/L Total Protein 8.0 7.0 (6.3-8.2) g/dL Albumin 5.0 4.0 (3.9-5) g/dL - Imaging and Cardiology Echo: pending Cardiac cath: report reviewed - Telemetry EKG Rhythm: Sinus Rhythm - EKG Sinus rhythms and dysrhythmias: sinus rhythm Repolarization changes or abnormalities: ST or T wave suggestive of ischemia
--- NOTE | 2021-10-27 10:50 | Progress Note ---
Hospitalist Physical - Constitutional Vitals: Temp Pulse Resp BP Pulse Ox 100.2 F H 66 19 143/76 97 10/27/21 07:08 10/27/21 09:30 10/27/21 09:00 10/27/21 09:30 10/27/21 09:15 General appearance: Present: mild distress, obese HEART Score - HEART Score EKG: Significant ST-depression Age: < 45 Risk factors: No known risk factors Troponin: Troponin T < 0.010 ng/mL (0.00-0.029) 10/26/21 23:35 Troponin: < normal limit - Critical Actions Critical Actions: 4-6 pts:12-16.6% risk of adverse cardiac event. Should be admitted Results - Labs CBC & Chem 7: 10/27/21 04:15 10/27/21 04:15 Labs: Laboratory Last Values WBC 10.4 K/mm3 (4.5-11.0) 10/27/21 04:15 RBC 3.82 M/mm3 (3.65-5.03) 10/27/21 04:15 Hgb 12.6 gm/dl (11.8-15.2) 10/27/21 04:15 Hct 36.4 % (35.5-45.6) D 10/27/21 04:15 MCV 95 fl (84-94) H 10/27/21 04:15 MCH 33 pg (28-32) H 10/27/21 04:15 MCHC 35 % (32-34) H 10/27/21 04:15 RDW 14.4 % (13.2-15.2) 10/27/21 04:15 Plt Count 111 K/mm3 (140-440) L 10/27/21 04:15 Lymph % (Auto) 14.3 % (13.4-35.0) 10/27/21 04:15 [place] % (Auto) 5.5 % (0.0-7.3) 10/27/21 04:15 Eos % (Auto) 0.0 % (0.0-4.3) 10/27/21 04:15 Baso % (Auto) 0.1 % (0.0-1.8) 10/27/21 04:15 Lymph # (Auto) 1.5 K/mm3 (1.2-5.4) 10/27/21 04:15 [place] # (Auto) 0.6 K/mm3 (0.0-0.8) 10/27/21 04:15 Eos # (Auto) 0.0 K/mm3 (0.0-0.4) 10/27/21 04:15 Baso # (Auto) 0.0 K/mm3 (0.0-0.1) 10/27/21 04:15 Seg Neutrophils % 80.1 % (40.0-70.0) H 10/27/21 04:15 Seg Neutrophils # 8.3 K/mm3 (1.8-7.7) H 10/27/21 04:15 PT 13.2 Sec. (12.2-14.9) 10/26/21 16:03 INR 0.91 (0.87-1.13) 10/26/21 16:03 D-Dimer 4049.77 ng/mlDDU (0-234) H 10/26/21 16:03 Sodium 140 mmol/L (137-145) 10/27/21 04:15 Potassium 3.9 mmol/L (3.6-5.0) 10/27/21 04:15 Chloride 106.0 mmol/L (98-107) 10/27/21 04:15 Carbon Dioxide 23 mmol/L (22-30) 10/27/21 04:15 Anion Gap 15 mmol/L 10/27/21 04:15 BUN 13 mg/dL (9-20) 10/27/21 04:15 Creatinine 1.2 mg/dL (0.8-1.3) 10/27/21 04:15 Estimated GFR > 60 ml/min 10/27/21 04:15 BUN/Creatinine Ratio 11 % 10/27/21 04:15 Glucose 112 mg/dL (75-100) H 10/27/21 04:15 Calcium 9.3 mg/dL (8.4-10.2) 10/27/21 04:15 Total Bilirubin 0.70 mg/dL (0.1-1.2) 10/27/21 04:15 AST 15 units/L (5-40) 10/27/21 04:15 ALT 11 units/L (7-56) 10/27/21 04:15 Alkaline Phosphatase 50 units/L (35-129) 10/27/21 04:15 Total Creatine Kinase 183 units/L (55-170) H 10/26/21 16:03 Troponin T < 0.010 ng/mL (0.00-0.029) 10/26/21 23:35 C-Reactive Protein 0.50 mg/dL (0.00-1.30) 10/26/21 16:03 Total Protein 7.0 g/dL (6.3-8.2) 10/27/21 04:15 Albumin 4.0 g/dL (3.9-5) 10/27/21 04:15 Albumin/Globulin Ratio 1.3 % 10/27/21 04:15 Lipase 16 units/L (13-60) 10/26/21 16:03 Urine Color Colorless (Yellow) 10/26/21 20:42 Urine Turbidity Clear (Clear) 10/26/21 20:42 Urine pH 8.0 (5.0-7.0) H 10/26/21 20:42 Ur Specific [place] 1.005 (1.003-1.030) 10/26/21 20:42 Urine Protein 30 mg/dl mg/dL (Negative) 10/26/21 20:42 Urine Glucose (UA) Negative mg/dL (Negative) 10/26/21 20:42 Urine Ketones Negative mg/dL (Negative) 10/26/21 20:42 Urine Blood Negative (Negative) 10/26/21 20:42 Urine Nitrite Negative (Negative) 10/26/21 20:42 Ur Reducing Substances Not Reportable 10/26/21 20:42 Urine Bilirubin Negative (Negative) 10/26/21 20:42 Urine Ictotest Not Reportable 10/26/21 20:42 Urine Urobilinogen 0.0 mg/dL (<2.0) 10/26/21 20:42 Ur Leukocyte Esterase Negative (Negative) 10/26/21 20:42 Urine WBC (Auto) 1.0 /HPF (0.0-6.0) 10/26/21 20:42 Urine RBC (Auto) 2.0 /HPF (0.0-6.0) 10/26/21 20:42 Urine Mucus Few /HPF 10/26/21 20:42 Urine Opiates Screen Positive 10/26/21 20:42 Urine Methadone Screen Negative 10/26/21 20:42 Ur Barbiturates Screen Negative 10/26/21 20:42 Ur Phencyclidine Scrn Negative 10/26/21 20:42 Ur Amphetamines Screen Negative 10/26/21 20:42 U Benzodiazepines Scrn Positive 10/26/21 20:42 Urine Cocaine Screen Negative 10/26/21 20:42 U Marijuana (THC) Screen Positive 10/26/21 20:42 Drugs of Abuse Note Disclamer 10/26/21 20:42 Gordon/IV: Voiding Method Urinal Active Medications - Current Medications Current Medications: Generic Name Dose Route Start Last Admin Trade Name Freq PRN Reason Stop Dose Admin Acetaminophen 650 mg 10/26/21 17:38 10/27/21 09:29 Acetaminophen 325 Mg Tab PO 650 mg Q6H PRN Administration Pain MILD(1-3)/Fever >100.5/ELISE Albuterol 2.5 mg 10/26/21 17:38 Albuterol 2.5 Mg/3 Ml Nebu IH Q3HRT PRN Shortness Of Breath Famotidine 20 mg 10/27/21 10:00 10/27/21 09:30 Famotidine 20 Mg Tab PO 20 mg QDAY ELOY Administration Heparin Sodium (Porcine) 4,400 unit 10/26/21 16:13 Heparin 10,000 Units/10 Ml Vial 40 unit/kg (4400 unit) IV Q6H PRN Anti-Xa Assay less than 0.1 un Nitroglycerin/Dextrose 50 mg in 250 mls @ 3 mls/hr 10/26/21 17:00 10/27/21 09:32 Tridil Drip 50mg/250ml IV 0 mcg/min TITR ELOY 0 mls/hr Titration Protocol 10 MCG/MIN Metoprolol Tartrate 50 mg 10/26/21 22:00 10/27/21 09:30 Metoprolol Tartrate 50 Mg Tab PO 50 mg BID ELOY Administration Morphine Sulfate 2 mg 10/26/21 17:38 Morphine 4 Mg/1 Ml Inj IV Q8H PRN Pain , Severe (7-10) Oxycodone/Acetaminophen 1 tab 10/26/21 17:38 Oxycodone /Acetaminophen 5-325mg Tab PO Q6H PRN Pain, Moderate (4-6) Sodium Chloride 10 ml 10/26/21 22:00 10/27/21 09:30 Sodium Chloride 0.9% 10 Ml Flush Syringe IV 10 ml BID ELOY Administration Sodium Chloride 10 ml 10/26/21 17:38 Sodium Chloride 0.9% 10 Ml Flush Syringe IV PRN PRN LINE FLUSH Valsartan 160 mg 10/26/21 22:00 10/27/21 09:29 Valsartan 160mg Tab PO 160 mg BID ELOY Administration
--- NOTE | 2021-10-27 11:21 | Discharge Summary ---
<JOSE L DAWN - Last Filed: 10/27/21 18:22> Providers - Providers Date of Admission: 10/26/21 17:38 Date of discharge: 10/27/21 Attending physician: SOM BARBA MD 10/26/21 17:47 Consult to Cardiac Rehabilitation [CONS] Routine Reason For Exam: Cardiac Rehab Evaluation 10/26/21 19:05 Consult to Physician [CONS] Routine Comment: Consulting Provider: PERI SANTA Physician Instructions: Reason For Exam: critical care 10/27/21 08:25 Consult to Physician [CONS] Routine Comment: NOTED/ yasmine Consulting Provider: TRINI MARQUEZ Physician Instructions: Reason For Exam: chest pain Primary care physician: GRIFFIN JOSHUA Hospitalization Reason for admission: ACS (Acute Coronary Syndrome), Hypertensive Emergency Condition: Critical Hospital course: This is a 40-year-old male with known past medical history of HTN, non compliant with medications admitted for hypertensive emergency and Chest pain s/p cardiac cath with normal coronaries. Echocardiogram completed this am, per Cardiology concern aortic dissection. Patient is being transfer to [place] for further workup and treat. #ACS (Acute Coronary Syndrome) #Hypertensive Emergency #Acute Diastolic Heart Failure #Medication Noncompliance - Presented with sudden substernal in location, crushing in nature, worsened with exertion, relieved with rest, associated with nausea, associated with multiple episodes of vomiting, associated with diaphoresis - SBP was in the 240s; EKG shows sinus rhythm with ST depression, Troponin negative X3 - Nitro gtt was initial and Cardiology consulted - 10/26 s/p emergent LHC- normal coronaries large epicardial vessel with moderate tortuosity. Right dominant system with normal LV function with elevated left end-diastolic pressure. - BB and valsartan initiated per Cardio - BP more control this am, off Nitro gtt - SR, HR in the 60s on the monitor - Echocardiogram completed this am, per Cardiology concern aortic dissection. - Patient is being transfer to [place] for further workup and treat. Accepting physician Dr. Talavera - Continue blood pressure monitor per protocol - Strict I's/O, monitor Q shift, daily weight - 2D Echo report pending - Patient reported that he stopped taking his BP meds, HTZ and Amlodipine, 2 months ago. He was managing his BP with herbal medicine #Elevated D-Dimer - BLE doppler and CTA chest/abd/pelvis pending #Current Smoker - Per patient daily cigars and THC smoker - Smoking cessation education provided. Patient verbalized understanding and agreed with the info provided #GI/DVT Prophylaxis - PPI- Pepcid - SCD to bilateral lower extremities while in bed #Advance Care Planning - Disease education data, care plan, diagnoses, and prognosis were discussed with patient at the bedside. All questions and concerns were addressed at this time. Patient acknowledged understanding and agreement with care plan. Patient is a FULL code. #Preventative Health Care - Patient counseled regarding smoking cessation, weight loss, risk factor reduction, increase physical activity discharge, medication compliance, and outpatient follow-up with primary care physician for all age and risk factor appropriate screening test. Disposition: 04 [facility] Final Discharge Diagnosis (Prints w/discharge instructions): ACS (Acute Coronary Syndrome). Hypertensive Emergency. C/F Aortic Dissection Time spent for discharge: 35 Core Measure Documentation - Palliative Care Palliative Care/ Comfort Measures: Not Applicable - Core Measures Any of the following diagnoses?: heart failure - Heart Failure Discharge Requirements KATHARINA/ARB for LVSD if EF <40%: Yes Beta olivia at discharge: Yes Exam - Constitutional Vitals: Temp Pulse Resp BP Pulse Ox 100.2 F H 75 19 118/84 99 10/27/21 07:08 10/27/21 11:01 10/27/21 11:01 10/27/21 11:01 10/27/21 11:01 General appearance: Present: no acute distress - EENT Eyes: Present: PERRL, EOM intact ENT: hearing intact - Neck Neck: Present: normal ROM - Respiratory Respiratory effort: normal Respiratory: bilateral: diminished - Cardiovascular Rhythm: regular Heart Sounds: Present: S1 & S2 - Extremities Extremities: no ischemia, pulses intact, pulses symmetrical Peripheral Pulses: within normal limits - Abdominal General gastrointestinal: Present: soft, non-distended, normal bowel sounds Male genitourinary: Present: deferred - Rectal Rectal Exam: deferred - Integumentary Integumentary: Present: clear, warm, dry - Musculoskeletal Musculoskeletal: strength equal bilaterally - Psychiatric Psychiatric: appropriate mood/affect, cooperative - Neurologic Neurologic: CNII-XII intact, moves all extremities - Allied Health Allied health notes reviewed: nursing Plan Activity: other (Bedrest) Diet: low fat, low cholesterol, low salt Wound: open to air Special Instructions: other (Per facility) Follow up with: GRIFFIN JOSHUA MD [Primary Care Provider] - 7 Days <SOM BARBA - Last Filed: 10/28/21 07:35> Providers - Providers Date of Admission: 10/26/21 17:38 Attending physician: SOM BARBA MD 10/26/21 17:47 Consult to Cardiac Rehabilitation [CONS] Routine Reason For Exam: Cardiac Rehab Evaluation 10/26/21 19:05 Consult to Physician [CONS] Routine Comment: Consulting Provider: PERI SANTA Physician Instructions: Reason For Exam: critical care 10/27/21 08:25 Consult to Physician [CONS] Routine Comment: NOTED/ yasmine Consulting Provider: TRINI MARQUEZ Physician Instructions: Reason For Exam: chest pain Primary care physician: GRIFFIN JOSHUA Hospitalization Hospital course: I saw and evaluated the patient. I agree with the findings and the plan of care as documented in the Nurse Practitioner's~note, with the following corrections and additions. Exam - Constitutional Vitals: Temp Pulse Resp BP Pulse Ox 99.6 F 73 19 125/67 97 10/27/21 11:41 10/27/21 15:45 10/27/21 15:45 10/27/21 15:45 10/27/21 15:45
[2021-10-27] MEDS ORDERED: ENOXAPARIN 40 MG/0.4 ML INJ SUB-Q SCH (12:00)
--- NOTE | 2021-10-27 13:47 | Electrocardiograph Report ---
[facility] Test Date: 2021-10-26 Test Time: 15:45:22 Pat Name: JADYN POSEY Department: Room: A255 1 Gender: M [employer]ian [employer]: OSWALDO : 1980 Requested By: FRANCESCA INIGUEZ Order Number: [id number] Reading MD: Elena Lopez Measurements Intervals [place] Rate: 98 P: 255 WV: 223 QRS: 72 QRSD: 86 T: -77 QT: 372 QTc: 476 Interpretive Statements Sinus or ectopic atrial rhythm Prolonged WV interval LVH WITH SECONDARY REPOL ABNRM No previous ECG available for comparison Electronically Signed On 10-27-2021 13:46:53 EDT by Elena Lopez
[2021-10-27 15:48] VITALS: BP 125/67
--- NOTE | 2021-10-27 16:25 | Vascular Lab Report ---
DUPLEX DOPPLER LOWER EXTREMITY VEINS, BILATERAL INDICATION / CLINICAL INFORMATION: r/o DVT. TECHNIQUE: Duplex doppler imaging was performed through the veins of both lower extremities using karli ous compression and other maneuvers. COMPARISON: None available. FINDINGS: RIGHT COMMON FEMORAL VEIN: Negative. RIGHT FEMORAL VEIN: Negative. RIGHT POPLITEAL VEIN: Negative. RIGHT CALF VEINS: Negative. LEFT COMMON FEMORAL VEIN: Negative. LEFT FEMORAL VEIN: Negative. LEFT POPLITEAL VEIN: Negative. LEFT CALF VEINS: Negative. ADDITIONAL FINDINGS: None. IMPRESSION: 1. No sonographic evidence for DVT in either lower extremity. Scribed by: Kristel Caldwell RDMS, VENKAT, ROHIT Scribed: 10/27/2021 2:12 PM I have reviewed the images, agree with this report, and edited this report as needed. Signer Name: Poncho Villarreal MD Signed: 10/27/2021 4:20 PM Workstation Name: [id number]
--- NOTE | 2021-10-28 04:07 | Consultation ---
DATE OF CONSULTATION: 10/27/2021 PULMONARY CRITICAL CARE CONSULT NOTE CONSULTING PHYSICIAN: Dr. Carlton. REASON FOR CONSULTATION: Severe chest pain, possible aortic dissection. CHIEF COMPLAINT AND HISTORY OF PRESENT ILLNESS: The patient is a now 40-year-old male with past medical history significant for hypertension and who came into the Emergency Room complaining of a sudden acute chest pain initially started on the left side of his neck and then radiated to his chest and he believes down to his back. He felt a little numbness around his tongue and his lips he tells me. In retrospect, he did have some numbness of his fingertips, but that quickly went away. He described it as being crushing in nature, worse with exertion. It was a 10/10. The patient admits that he had been on blood pressure medications, but recently started taking alternative treatment. I think he said black seed oil and so was not taking his blood pressure medications. 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 Denied any significant acute leg pain or swelling, either unilaterally or bilaterally or any suggestion of a deep venous thrombosis. In the Emergency Room, he was found to have elevated blood pressure of 205/87 mmHg. He was diagnosed with hypertensive emergency as well as an acute coronary syndrome. There was suggestion of diastolic congestive heart failure. Cardiology was consulted. He was taken emergently to the cardiac cath lab radiology technologist. His coronaries are reported to have been clean. He was started on a nitro drip and brought into the critical care unit for close observation. Of note, he denied any cough or expectoration. He denied any gross or streaky hemoptysis. He denied any prior history of venous thromboembolic phenomenon. He denied any illicit drug use or abuse. When I stopped by to see him, he was resting in bed. The pain was better. He had a headache presumably from a nitro drip. He states that he does smoke. He smokes cigars. He denies any history of cigarette smoking, denies illicit drug use or abuse. This really is as much of the history of presentation as I have. PAST MEDICAL HISTORY: Hypertension, tobacco use disorder. PAST SURGICAL HISTORY: Denies. MEDICATIONS: He was on at the time I stopped by to see according to the medication administration record included the following: Tylenol 650 mg p.o. q. 6 hours p.r.n. mild pain or fever, albuterol 2.5 mg nebulized q. 3 hours p.r.n. shortness of breath, Lovenox 40 mg subcutaneous daily, Pepcid 20 mg p.o. daily, metoprolol 50 mg p.o. b.i.d., morphine sulfate 2 mg IV q. 8 hours p.r.n. severe pain, Percocet 1 tablet p.o. q. 6 hours p.r.n. moderate pain, valsartan 160 mg p.o. b.i.d.. ALLERGIES: PENICILLINS, NATURE OF THIS ALLERGY IS UNKNOWN. DIET: Well-built gentleman. Denies acute weight loss or gain in the preceding few weeks to months. FAMILY AND SOCIAL HISTORY: Lives in the community. He does smoke tobacco. Denies alcohol or illicit drug use or abuse. FAMILY HISTORY: Otherwise, noncontributory. REVIEW OF SYSTEMS: No loss of consciousness. No new onset seizures. No new onset focal weakness. He did have the numbness to his lips and the tips of his fingers in the left hand. He denies gross hematochezia or melena. Denies gross hematuria or dysuria. Denies hematemesis or hemoptysis. Denies heat or cold intolerance. Denies polydipsia, polyuria. Complete 13-system review of systems obtained. Pertinent positives and/or negatives as in body of history above, otherwise noncontributory. PHYSICAL EXAMINATION: VITAL SIGNS: At presentation, he was afebrile, the first temperature recorded on him was 97.7, pulse was 91 at presentation with a respiratory rate of 20 and blood pressure 205/87 that is high as 211/78. O2 sats were 100% initially on 2 liters nasal cannula. GENERAL: He is a well-built male. Normocephalic, atraumatic. Talking to me in full sentences without significantly increased respiratory effort at rest. HEAD, EYES, EARS, NOSE AND THROAT: Anicteric. No conjunctival erythema. Oropharynx was moist. NECK: No gross jugular venous distention, no thyromegaly. Grossly, there were no palpable lymph nodes in the supraclavicular or submandibular lymph node chains. LUNGS: Auscultation of both lung cruz was unremarkable. He had good bilateral air movement. No wheezing. HEART: Sounds 1 and 2 are heard. There were regular rate and rhythm at the time of my evaluation without overt rubs or murmurs. ABDOMEN: Soft, full, bowel sounds are positive, nontender. No palpable hepatosplenomegaly. EXTREMITIES: Without overt digital clubbing or cyanosis. No pedal edema. Pedal pulses are 2+ bilaterally. NEUROLOGIC: Pupils were equal, round, about 4 mm, reactive to light. Extraocular muscle movements were intact. He moves all 4 extremities spontaneously. SKIN: Normal turgor in the areas I examined without overt cellulitis or rash. Please see the wound care nurses' notes for full description of his skin. PSYCHIATRIC: Mood was normal. Affect was appropriate. He had intact judgment and insight. LABORATORY DATA: From my review are as follows: Admission white cell count 9100, hemoglobin 14.6, hematocrit 43.7, platelet count 128. No manual differential. D-dimer was 4049. Serum sodium was 141, potassium 3.4, chloride 102, bicarbonate 20, BUN 11, creatinine 1.2, glucose was 99. Liver function tests essentially within normal limits. Troponin within normal limits. Urinalysis was negative for nitrites and leukocyte esterase and essentially bland. Urine drug screen was positive for opiates, benzodiazepines and THC. No microbiology studies. Chest x-ray was done. In retrospect, it does appear somewhat prominent; however, there is really no focal deficit. There is borderline cardiomegaly, no gross pneumothorax, no gross bony fracture. A 2D echo has just been done, which shows normal ejection fraction, normal right ventricular systolic function, RV systolic 31. No pericardial effusion. ASSESSMENT: 1. Acute chest pain. 2. Hypertensive emergency. 3. Suspicion of aortic dissection. 4. History of diastolic congestive heart failure. 5. Thrombocytopenia. 6. Elevated D-dimer. PLAN: He will need the CT angiogram to evaluate his mediastinum. I have discussed with the alteration tailor apprentice. He has taken a look at the echo and does feel strongly that there is a suspicion of an aortic dissection. This will be compatible with some of his symptomatology. He is hemodynamically stable at this time. His pulse is well controlled. He will remain on beta blockers. He is going to be emergently transferred to an outside hospital for further management and intervention. I will hold on the CT angiogram as we do not have primary intervention over here. If it does confirm a dissection, further interventions will be at the transferred hospital. We will make sure that we prevent tachycardia and continue to watch him closely. Treat any anxiety. I have strongly counseled tobacco abstinence. He is appropriately on GI prophylaxis. We are going to stop DVT prophylaxis at this time. Flu and pneumonia vaccination will be addressed per protocol. Thank you very much for the consult, Dr. Carlton. We will follow along and make further recommendations as picture progresses/becomes clearer. He is critically ill, at very high risk of from cardiopulmonary system decompensation at this time. I spent about 35-40 minutes of critical care time without overlap and excluding any procedural time that may be necessary. Of note, he may well also have an acute pulmonary embolism, but the CT angiogram should be diagnostic. TID: [id number] RECEIPT: [id number] JUDY/SYLVIE
== END 2021-10-27 16:00 | disposition short-term general hospital (02) | DRG 286 ==
LOC: ED 15:30 → CC1 17:38
PROVIDERS: ADMIT Internal Medicine; ATTEND Internal Medicine
PROC: 4A023N7 Measurement of Cardiac Sampling and Pressure, Left Heart, Percutaneous Approach (ICD-10-PCS; principal; 2021-10-26)
PROC: B2111ZZ Fluoroscopy of Multiple Coronary Arteries using Low Osmolar Contrast (ICD-10-PCS; 2021-10-26)
PROC: B2151ZZ Fluoroscopy of Left Heart using Low Osmolar Contrast (ICD-10-PCS; 2021-10-26)
DX: I11.0 Hypertensive heart disease with heart failure (principal); I50.31 Acute diastolic (congestive) heart failure; I71.00 Dissection of unspecified site of aorta; I16.1 Hypertensive emergency; I24.9 Acute ischemic heart disease, unspecified; E66.9 Obesity, unspecified; D69.6 Thrombocytopenia, unspecified; Z68.22 Body mass index [BMI] 22.0-22.9, adult; Z91.14 Patient's other noncompliance with medication regimen
CPT/HCPCS: 36415; 71045; 80053; 80307; 81001; 82550; 83690; 84484; 85025; 85379; 85610; 86140; 93005; 93306; 93458; 93970; G0378; J1815; J3490; C1894; C8929; J0360; J1644; J2250; J2270; J3010; J7030; J7040; Q9967